=== PATIENT | male | born 1985 | race Caucasian/White ===

== ENCOUNTER 2018-12-07 08:48 | Emergency (ER) | payer MEDICAID, SELFPAY ==
[2018-12-07] VITALS (14 sets, daily range): BP systolic 128–130; BP diastolic 59–94; PULSE 50–84; RESP 11–21; TEMP 37.4; O2SAT 88–96
--- NOTE | 2018-12-07 08:55 | DI.RAD_ITS ---
SYMPTOMS/DIAGNOSIS: ? FX LT MID LOWER RIBS, INJURY LEFT RIBS TO INCLUDE CHEST X-RAY: The heart size and pulmonary vasculature are within normal limits. There is linear opacity seen in the left lung base medially likely reflecting atelectasis. There does appear to be a small left pleural effusion. No pneumothorax is identified. There are fractures involving the lateral aspect of the left ninth rib. IMPRESSION: 1. Comminuted fracture involving the lateral aspect of the left ninth rib. No pneumothorax. 2. Atelectasis in the left lung base.
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
[2018-12-07] MEDS: Ibuprofen 800 MG TAB PO (09:05)
[2018-12-07] MEDS: Acetaminophen 500 MG TAB 1000 MG PO (09:05)
[2018-12-07] MEDS: Lidocaine 5% Patch 1 PATCH TP (09:10)
[2018-12-07] MEDS: Ondansetron O.D.T. 4 MG TABEF (09:25)
--- NOTE | 2018-12-07 09:34 | DI.VRAD_ITS ---
Addendum created by Bhanu Cohen MD on 12/07/2018 9:36:20 AM EDT CORRECTION: Soft tissues: Superficial soft tissue contusion overlying the rib fractures. Initial report created on 12/07/2018 9:33:56 AM EDT EXAM: XR Left Ribs EXAM DATE/TIME: 12/07/2018 8:58 AM CLINICAL HISTORY: 33 years old, male; Signs and symptoms; Other: R/O FX of left mid-lower ribs TECHNIQUE: Imaging protocol: XR Left ribs. Views: 2 views. COMPARISON: No relevant prior studies available. FINDINGS: Bones/joints: There are fractures involving the left 9th rib. Lungs: There is a vertical band-like opacity in the posteromedial left lower lobe most compatible with atelectasis. Pleural space: No pneumothorax. Soft tissues: Normal. IMPRESSION: Left 9th rib fractures. No pneumothorax. EXAM: XR Chest, 2 Views EXAM DATE/TIME: 12/07/2018 8:58 AM CLINICAL HISTORY: 33 years old, male; Signs and symptoms; Other: R/O FX of left mid-lower ribs TECHNIQUE: Imaging protocol: XR of the chest, 2 views. COMPARISON: No relevant prior studies available. FINDINGS: Lungs: There is a vertical band-like opacity in the posteromedial left lower lobe most compatible with atelectasis. Pleural space: No pneumothorax. Trace posterior left pleural effusion. Heart/Mediastinum: The heart is not enlarged. The mediastinal contours are normal. Bones/joints: There are fractures involving the left 9th rib. IMPRESSION: Left 9th rib fractures. No pneumothorax. Dictated and Authenticated by: Bhanu Cohen MD. Ordering:NIURKA Garcia MD
[2018-12-07] MEDS: Bupivacaine LIPOSOME/PF 133 MG/10 ML VIAL IJ (10:00)
[2018-12-07] MEDS: Bupivacaine 0.5% Pres-Free 30 ML VIAL (10:00)
== END 2018-12-07 10:55 | disposition home or self-care (01) ==
PROVIDERS: Emergency Provider Student in an Organized Health Care Education/Training Program
DX: S22.32XA Fracture of one rib, left side, initial encounter for closed fracture (principal); W22.8XXA Striking against or struck by other objects, initial encounter
CPT/HCPCS: 99284; 71046; 71100

== ENCOUNTER 2019-10-19 10:14 | Emergency (ER) | payer MEDICAID, SELFPAY ==
[2019-10-19 10:17] VITALS: BP 158/94; PULSE 74; TEMP 36.7; O2SAT 96
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
[2019-10-19 11:01] LABS: Lactate 0.8 mmol/L (0.6-1.4)
--- NOTE | 2019-10-19 11:05 | DI.RAD_ITS ---
EXAM: XR HAND RT COMPLETE CLINICAL HISTORY: swelling/ TECHNIQUE: COMPARISON: No exams were available for comparison FINDINGS: Three views were obtained. No bony abnormality seen. IMPRESSION:
[2019-10-19 11:07] LABS: Abs Immature Grans 0.01 k/cumm (0.0-0.09); Absolute Basophil Count 0.01 k/cumm (0.0-0.2); Absolute Eosinophil Count 0.17 k/cumm (0.0-0.7); Absolute Lymphocyte Count 2.16 k/cumm (1.2-3.4); Absolute Monocyte Count 0.92 k/cumm (0.11-0.7); Absolute Neutrophil Count 5.45 k/cumm (1.2-6.7); Basophils % 0.1; Eosinophils % 1.9; HCT 39.1 % (40.0-50.0); HGB 13.3 g/dL (13.5-17.5); Immature Grans % 0.1 %; Lymphocytes % 24.8; Mean Corpuscular Hemoglobin 29.7 pg (27.0-33.0); Mean Corpuscular Volume 87.3 fL (80-95); Mean Platelet Volume 10.7 fL (8.0-11.0); Monocytes % 10.6; Neutrophils % 62.5; Platelet Count 222 x1000/uL (130-400); RBC 4.48 m/cumm (4.50-6.00); RBC Distribution Width 13.6 % (11.8-14.1); White Blood Cell Count 8.72 k/cumm (4.4-10.8)
[2019-10-19] MEDS: Normal Saline 1,000 ML 1000 ML IV (11:17)
[2019-10-19 11:24] LABS: ALT 210 U/L (16-63); AST 160 U/L (15-37); Albumin 3.9 g/dL (3.4-5.0); Alkaline Phosphatase 120 U/L (46-116); Anion Gap 9.2 mmol/L (3-11); BUN 12 mg/dL (7-18); Bilirubin, Total 0.4 mg/dL (0.2-1.0); C-Reactive Protein 7.74 mg/dL (0.0-0.3); CO2 26.8 mmol/L (21.0-32.0); CREATININE 0.68 mg/dL (0.70-1.30); Calcium 8.7 mg/dL (8.5-10.1); Chloride 106 mmol/L (98-107); Glucose 118 mg/dL (74-106); Potassium 3.9 mmol/L (3.5-5.1); Sodium 142 mmol/L (136-145); Total Protein 7.8 g/dL (6.4-8.2)
[2019-10-19] MEDS: Normal Saline Flush 10 ML SYR IVP (12:14)
[2019-10-19] MEDS: VANCOMYCIN 2,000 MG in Normal Saline 500 ML 250 MG IVPB (12:17)
[2019-10-19 12:28] VITALS: BP 129/76; PULSE 80; TEMP 37.2; O2SAT 99
[2019-10-19] MEDS: Sulfameth/Trimeth DS TAB 1 TAB PO (12:37)
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
== END 2019-10-19 13:05 | disposition home or self-care (01) ==
PROVIDERS: Emergency Provider Registered Nurse Emergency
DX: L02.511 Cutaneous abscess of right hand (principal); L03.113 Cellulitis of right upper limb
CPT/HCPCS: 10060; 36415; 80053; 87040; 96361; 96365; 96375; 99253; 99284; 73130; 83605; 85025; 86140; 87070; 87205; 99283

== ENCOUNTER 2021-12-31 11:55 | Emergency (ER) | payer MEDICAID, SELFPAY ==
[2021-12-31 12:02] VITALS: BP 145/87; PULSE 69; RESP 16; TEMP 37.1; O2SAT 98
[2021-12-31] MEDS: Bacitracin 1 PACKET TP (14:02)
[2021-12-31] MEDS: Doxycycline Hyclate 100 MG CAP PO (14:02)
--- NOTE | 2022-01-02 14:47 | ED.GENADUL_ITS ---
Discharge Plan Disposition Patient Disposition: HOME Condition: Stable Discharge Details Clinical Impression: Cellulitis of left thumb Primary Care Provider: None,None ED Provider: Savannah Manzo Home Meds and New Rx's Prescriptions: New doxycycline hyclate 100 mg capsule 100 mg PO BID Qty: 19 0RF Continued methadone 10 mg/mL Concentrate 80 mg PO DAILY Discharge Instructions Instructions: Cellulitis (ED) Additional Instructions: Please return immediately to the emergency department if you develop any new or worsening symptoms, if your condition does not improve as expected, or if you become otherwise concerned. It is extremely important that you call soon as possible to make an appointment to be seen in follow-up for this visit by your primary care doctor. Please return here in 48 for re-check if you cannot be seen by your primary doctor by that time. Discharge Data Discharge Date/Time-TO BE ENTERED AT DEPARTURE: 12/31/21 14:22 Medical Decision Making Duong Hernandez is a 36 y/o man with h/o OUD on methadone presenting to the [facility] department for thumb pain. Pt reports that 5 or six days ago he cut his right lateral thumb on metal. Pt reports that 3 days ago he developed swelling and redness on the dorsal aspect of his right thumb, adjacent to healing laceration. Swelling has worsened, now with pain. He reports small amount of purulent drainage from the dorsal right thumb. Denies fever, any other pain, SOB, cough, vomiting, diarrhea, numbness, weakness, other rash. He reports that he feels otherwise well and in his usual state of health. Reports normal PO intake. On exam Pt is well and non-toxic appearing. There is edema, erythema, TTP, and scant drainage over the extensor surface of the right thumb. Thumb is NVI. Exam/hx at this time is not c/w paronychia, felon, septic arthritis, flexor tenosynovitis, sepsis, necrotizing fasciitis, retained foreign body. POCUS shows subcutaneous edema, no fluid collection. Concern for cellultiis. No abscess present. Plan for tetanus update, doxycycline, finger splint. I had a discussion with Patient regarding return to emergency department precautions, home care, and importance of outpatient follow-up. Pt verbalizes understanding of the plan and is amenable. Patient discharged to home with clear plan for outpatient follow-up. All questions were answered. Disposition decision was made weighing the risks and benefits of hospitalization versus outpatient treatment, the risk for further decompensation, and the patient's wishes. HPI General Mode of arrival: ambulatory . Date/Time Provider Initiated Documentation: 12/31/21 12:35 . Limitations to Documentation: no limitations . Information obtained by: patient, RN notes reviewed and old records reviewed . HPI Narrative: Duong Hernandez is a 36 y/o man with h/o OUD on methadone presenting to the emergency department for thumb pain. Pt reports that 5 or six days ago he cut his right lateral thumb on metal. Pt reports that 3 days ago he developed swelling and redness on the dorsal aspect of his right thumb, adjacent to healing laceration. Swelling has worsened, now with pain. He reports small amount of purulent drainage from the dorsal right thumb. Denies fever, any other pain, SOB, cough, vomiting, diarrhea, numbness, weakness, other rash. He reports that he feels otherwise well and in his usual state of health. Reports normal PO intake. Related Data Home Medications Medication Instructions Recorded Confirmed doxycycline hyclate 100 mg capsule 100 mg PO BID #19 caps 12/31/21 methadone 10 mg/mL oral concentrate 80 mg PO DAILY 12/31/21 12/31/21 Previous Rx's Medication Instructions Recorded doxycycline hyclate 100 mg capsule 100 mg PO BID #19 caps 12/31/21 Allergies Allergy/AdvReac Type Severity Reaction Status Date / Time No Known Allergies Allergy Unverified 12/31/21 12:06 General Stated Complaint: Cellulitis DANIS: 3 Review of Systems Narrative: Constitutional: denies fevers Eyes: denies eye pain ENT: denies ear pain, dental pain, sore throat Cardiovascular: denies chest pain Respiratory: denies SOB, cough GI: denies abdominal pain, vomiting, diarrhea : denies flank pain MSK: reports right thumb pain over dorsal aspect, denies back pain, neck pain, arthralgias, myalgias Skin: reports right dorsal thumb swelling, redness, denies other rash Neuro: denies headaches, numbness, weakness PFSH All Active Problems Cellulitis of left thumb (Acute) Cellulitis and abscess of finger, unspecified (Acute) Social History Smoking/Tobacco Use Status: Current every day Tobacco Type: cigarettes Smoking risk assessment performed?: Yes Alcohol Intake: current Alcohol Intake frequency: a few times a week Alcohol type: beer, wine and hard liquor Drug use: Daily Substance use type: marijuana Do you feel safe at home: Yes Do you feel safe in your relationship?: Yes Exam Narrative Exam Narrative: Constitutional: well and [id number], pleasant, conversing normally HENT: head atraumatic/normocephalic/normal inspection, mucous membranes moist Eyes: conjunctiva normal, sclera normal, pupils 3mm b/l Neck: no stridor, normal ROM, trachea midline Resp: normal work of breathing, speaking in full sentences Cardio: normal rate, normal rhythm Skin: warm, dry, normal color, no rash Neuro: alert, not altered, grossly non-focal, normal tone Ext: right extensor surface of thumb with erythema, scant purulent drainage, edema. No TTP, edema, or erythema of the flexor surface. Erythema is present from proximal to the nail to just distal to the MCP joint. Able to range IP joint with some pain. Brisk cap refill. No other erythema or edema of the hand. Distal sensation of the thumb intact. Lateral right thumb laceration healing well without drainage, edema. Radial pulses intact and symmetric. Psych: normal mood, normal affect, normal behavior Course Vital Signs Vital signs: Vital Signs Temperature 37.1 C 12/31/21 12:02 Pulse 69 12/31/21 12:02 Respiratory Rate 16 12/31/21 12:02 Blood Pressure 145/87 H 12/31/21 12:02 Pulse Oximetry 98 12/31/21 12:02 Temperature 37.1 C 12/31/21 12:02 Temperature Source Skin 12/31/21 12:02 Pulse 69 12/31/21 12:02 Respiratory Rate 16 12/31/21 12:02 Respiratory Effort 12/31/21 13:21 Blood Pressure 145/87 H 12/31/21 12:02 Blood Pressure Position Sitting 12/31/21 12:02 Pulse Oximetry 98 12/31/21 12:02 Oxygen Delivery Method Room Air 12/31/21 12:02 Oxygen Flow Rate 0 12/31/21 12:02 Pain Level 10 12/31/21 12:02 PAWSS Have you Been Recently Intoxicated or Drunk Within the Last 30 days?: No Have you Ever Experienced Previous Episodes of Alcohol Withdrawal?: No Have you ever Experienced Withdrawal Seizures?: No Have you ever Experienced Delirium Tremens(DT)s?: No Have you ever undergone Alcohol Rehabilitation Treatment (i.e, inpt ot outpatient treatment programs)?: No Have you ever Experienced Blackouts?: No Have you ever Combined Alcohol with other Downers within the last 90 days?: No Have you ever Combined Alcohol with any other Substance of Abuse during the last 90 days?: No Positive Blood Alcohol level on Presentation? [PCS.BAL]: No Evidence of Increased Autonomic Activity (i.e. HR>120, tremor, sweating, agitation, nausea)?: No Result: 0
== END 2021-12-31 14:22 | disposition home or self-care (01) ==
PROVIDERS: Emergency Provider Student in an Organized Health Care Education/Training Program
DX: S61.012A Laceration without foreign body of left thumb without damage to nail, initial encounter (principal); L03.012 Cellulitis of left finger; W26.8XXA Contact with other sharp object(s), not elsewhere classified, initial encounter
CPT/HCPCS: 29130; 90471; 99283

== ENCOUNTER 2023-11-17 13:08 | Emergency (ER) | payer MEDICAID, SELFPAY ==
[2023-11-17 13:10] VITALS: BP 173/112; PULSE 80; RESP 16; TEMP 37.4; O2SAT 99
--- NOTE | 2023-11-17 14:00 | DI.CT_ITS ---
Exam(s) CT ABDOMEN PELVIS W EXAM: CT ABDOMEN PELVIS W CLINICAL HISTORY: concern for right inguinal hernia TECHNIQUE: Imaging Protocol: Axial computed tomography images with coronal and sagittal reformatted images were created and reviewed. CONTRAST MATERIAL: Intravenous: Omnipaque 350 Contrast volume:100 mL Oral: No COMPARISON: No exams were available for comparison FINDINGS: ABDOMEN: Lung Bases: Normal where visualized. Liver: The liver has a nodular contour raising the question of hepatic cirrhosis. Please correlate c linically. The liver measures 21 cm long. No measurable mass. Portal, Superior Mesenteric, and Splenic Veins: Unremarkable. Gallbladder and Biliary Tract: The gallbladder is contracted. No biliary ductal dilatation or stones are seen. Pancreas: Normal density, no abnormal calcifications or inflammatory process. Spleen: Splenomegaly. Adrenals: No masses seen. Kidneys: The patient has a horseshoe kidney. No radiodense stones or obstructive uropathy. No masses seen. Abdominal Aorta: Abdominal portion non-dilated. Bowel: No obstruction or bowel wall thickening. Appendix is unremarkable. Peritoneal Cavity: No ascites, collection or mesenteric inflammatory response. No free air. Lymph Nodes: Within normal limits. Bones: Within normal limits for the patient's age. Soft Tissues: There are small fat containing bilateral inguinal hernias. PELVIS: Bladder: The urinary bladder is incompletely distended. There is mild diffuse thickening of the wall of the urinary bladder. Reproductive Organs: Unremarkable as visualized. Lymph Nodes: Within normal limits. Bones: Within normal limits for the patient's age. IMPRESSION: 1. There do appear to be small bilateral fat containing inguinal hernias. 2. Hepatosplenomegaly. Nodular contour of the liver suggesting hepatic cirrhosis. 3. Incidental note is made of a horseshoe kidney. RADIATION DOSE DELIVERED: 1,327.94mGy.cm Total DLP DATA REPOSITORY: All CT scans at this facility are submitted to the National Radiology Data Registry (NRDR) Dose Index Registry (DIR) with the [employer] (ACR). RADIATION OPTIMIZATION: All CT scans at this facility use at least one of these dose optimization te chniques: automated exposure control; mA and/or kV adjustment per patient size (includes targeted exa ms where dose is matched to clinical indication); or iterative reconstruction.
[2023-11-17 14:09] VITALS: BP 173/112; PULSE 80; RESP 16; TEMP 37.4; O2SAT 99
[2023-11-17] MEDS: Normal Saline 1,000 ML 1000 ML IV (14:33)
[2023-11-17] MEDS: Ketorolac 15 MG/ML VIAL IVP (14:34)
[2023-11-17 14:53] LABS: Abs Immature Grans 0.02 10^3/uL (0.0-0.06); Absolute Basophil Count 0.02 10^3/uL (0.0-0.2); Absolute Eosinophil Count 0.08 10^3/uL (0.0-0.7); Absolute Lymphocyte Count 1.26 10^3/uL (1.2-3.4); Absolute Neutrophil Count 5.25 10^3/uL (1.2-6.7); Basophils % 0.3 %; Eosinophils % 1.1 %; HCT 38.6 % (40.0-50.0); HGB 12.5 g/dL (13.5-17.5); Immature Grans % 0.3 %; Lymphocytes % 17.2 %; MCH 28.2 pg (27.0-33.0); MCHC 32.4 % (32.0-36.0); MCV 87 fL (80-95); MPV 12.3 fL (8.0-11.0); Monocytes % 9.5 %; Neutrophils % 71.6 %; Platelet Count 169 10^3/uL (130-400); RBC 4.43 10^6/uL (4.36-5.78); RDW 13.2 % (11.8-14.1); RDW-SD 42.2 fL; WBC 7.33 10^3/uL (4.4-10.8)
[2023-11-17 15:09] LABS: ALT 88 U/L (16-63); AST 141 U/L (15-37); Albumin 3.4 g/dL (3.4-5.0); Alkaline Phosphatase 144 U/L (46-116); Anion Gap 6.5 mmol/L (3-11); BUN 10 mg/dL (7-18); Bilirubin, Total 0.7 mg/dL (0.2-1.0); CO2 28.5 mmol/L (21.0-32.0); CREATININE 0.7 mg/dL (0.70-1.30); Calcium 8.5 mg/dL (8.5-10.1); Chloride 105 mmol/L (98-107); Glucose 95 mg/dL (74-106); Potassium 4.5 mmol/L (3.5-5.1); Sodium 140 mmol/L (136-145); Total Protein 7.4 g/dL (6.4-8.2)
--- NOTE | 2023-11-17 15:10 | ED.GENADUL_ITS ---
Discharge Plan Disposition Patient Disposition: Home Condition: Improving Discharge Details Chief Complaint: Abd Prob Clinical Impression: Inguinal hernia Primary Care Provider: None,None ED Provider: Sandoval Arzola Home Meds and New Rx's Prescriptions: No Action No Known Home Meds Discharge Instructions Instructions: Inguinal Hernia (ED) Additional Instructions: Please follow-up with primary care physician and consider follow-up with general surgery for any worsening of your inguinal hernias. Please return to the emergency department for severe worsening symptoms such as but not limited to severe uncontrolled pain, skin color changes from painful hernias that do not resolve, nausea vomiting abdominal distention and/or constipation. HPI General Date/Time Provider Initiated Documentation: 11/17/23 13:52 . HPI Narrative: 38-year-old male presents with right groin pain after lifting at work. Denies bowel or bladder issues. No vomiting no abdominal distention no constipation. Related Data Home Medications Medication Instructions Recorded Confirmed Unknown [No Known Home Meds] 11/17/23 11/17/23 Allergies Allergy/AdvReac Type Severity Reaction Status Date / Time No Known Allergies Allergy Unverified 11/17/23 14:11 General Stated Complaint: Abd Prob DANIS: 3 Review of Systems Narrative: Review of Systems Constitutional: negative Eyes: negative ENT: negative Cardiovascular: negative Respiratory: negative Gastrointestinal: negative : Groin pain Musculoskeletal: negative Skin: negative Neurologic: negative Psych: negative Exam Narrative Exam Narrative: Physical Examination General: alert, awake, cooperative, resting comfortably, no acute distress HEENT: normocephalic, atraumatic; PERRL, EOM intact, conjunctiva normal; no nasal discharge; moist mucous membranes, oral and pharyngeal mucosa normal, tolerating secretions Neck: supple, trachea midline; full ROM Chest: normal to inspection Respiratory: normal respiratory effort, speaking in full sentences GI: abdomen soft, non-tender, non-distended; no palpable mass or hepatosplenomegaly : Normal external genitalia, slight fullness in inguinal region, normal testes Skin: no lesions, rashes or trauma appreciated Course Vital Signs Vital signs: Vital Signs Temperature 37.4 C 11/17/23 13:10 Pulse 80 11/17/23 13:10 Respiratory Rate 16 11/17/23 13:10 Blood Pressure 173/112 H 11/17/23 13:10 Pulse Oximetry 99 11/17/23 13:10 Temperature 37.4 C 11/17/23 14:09 Temperature Source Tympanic 11/17/23 14:09 Pulse 80 11/17/23 14:09 Respiratory Rate 16 11/17/23 14:09 Respiratory Effort Normal 11/17/23 14:09 Blood Pressure 173/112 H 11/17/23 14:09 Pulse Oximetry 99 11/17/23 14:09 Oxygen Delivery Method Room Air 11/17/23 14:09 Oxygen Flow Rate 0 11/17/23 13:10 Pain Level 6 11/17/23 14:09 Lab/Test Results Lab/Test Results: Laboratory Tests Range/Units 11/17/23 14:40 WBC (4.4-10.8) 10^3/uL 7.33 RBC (4.36-5.78) 10^6/uL 4.43 Hgb (13.5-17.5) g/dL 12.5 L Hct (40.0-50.0) % 38.6 L MCV (80-95) fL 87 MCH (27.0-33.0) pg 28.2 MCHC (32.0-36.0) % 32.4 RDW (11.8-14.1) % 13.2 Plt Count (130-400) 10^3/uL 169 MPV (8.0-11.0) fL 12.3 H Immature Gran % % 0.3 Neutrophils % % 71.6 Lymphocytes % % 17.2 Monocytes % % 9.5 Eosinophils % % 1.1 Basophils % % 0.3 Nucleated RBC % (0.0-0.3) % 0.0 Absolute Neutrophils (1.2-6.7) 10^3/uL 5.25 Absolute Lymphocytes (1.2-3.4) 10^3/uL 1.26 Absolute Monocytes (0.1-0.8) 10^3/uL 0.70 Absolute Eosinophils (0.0-0.7) 10^3/uL 0.08 Absolute Basophils (0.0-0.2) 10^3/uL 0.02 Medical Decision Making 38-year-old male presents with right groin pain in the setting of lifting at work. Slight fullness to inguinal region on examination, normal testes normal external genitalia, nonperitoneal nondistended abdomen. Likely inguinal hernia. No nausea vomiting abdominal distention or constipation no skin changes to suggest incarcerated or strangulated hernia. Will provide analgesia will obtain basic labs and CT abdomen pelvis to assess size and location of hernia. Likely be given general surgery follow-up 16: 18 bilateral inguinal hernias, no signs of incarceration or strangulation. Home care instructions return precautions given. Quality:SDOH Health Related Social Needs: No Data to Display PFSH All Active Problems (Updated 11/17/23 @ 16:20 by Sandoval Arzola MD) Inguinal hernia (Acute) Cellulitis and abscess of finger, unspecified (Acute) Social History Smoking/Tobacco Use Status: Current every day Tobacco Type: cigarettes Smoking risk assessment performed?: Yes Alcohol Intake: current Alcohol Intake frequency: a few times a week Alcohol type: beer, wine and hard liquor Drug use: Daily Substance use type: marijuana Do you feel safe at home: Yes Do you feel safe in your relationship?: Yes PAWSS Have you Been Recently Intoxicated or Drunk Within the Last 30 days?: No Have you Ever Experienced Previous Episodes of Alcohol Withdrawal?: No Have you ever Experienced Withdrawal Seizures?: No Have you ever Experienced Delirium Tremens(DT)s?: No Have you ever undergone Alcohol Rehabilitation Treatment (i.e, inpt ot outpatient treatment programs)?: No Have you ever Experienced Blackouts?: No Have you ever Combined Alcohol with other Downers within the last 90 days?: No Have you ever Combined Alcohol with any other Substance of Abuse during the last 90 days?: No Positive Blood Alcohol level on Presentation? [PCS.BAL]: No Evidence of Increased Autonomic Activity (i.e. HR>120, tremor, sweating, agitation, nausea)?: No Result: 0
[2023-11-17] MEDS: Omnipaque 350 MG/ML 100 ML BTL IJ (15:41)
[2023-11-17] MEDS: Normal Saline - Diluent 50 ML VIAL IJ (15:42)
[2023-11-17 16:26] VITALS: BP 173/112; PULSE 80; RESP 16; TEMP 37.4; O2SAT 99
[2023-11-17 16:29] VITALS: BP 146/92; PULSE 78; RESP 13; O2SAT 96
--- NOTE | 2023-11-17 17:46 | NUR.NOTE ---
Referral faxed to [facility] for bilateral inguinal hernias, in 1 to 2 weeks. Nursing Note:
== END 2023-11-17 16:30 | disposition home or self-care (01) ==
PROVIDERS: Emergency Provider Emergency Medicine
DX: K40.90 Unilateral inguinal hernia, without obstruction or gangrene, not specified as recurrent (principal); R10.31 Right lower quadrant pain
CPT/HCPCS: 80053; 96361; 96374; 99285; 74177; 85025; 99283; J1885; J3490

== ENCOUNTER 2024-03-08 15:32 | Emergency (ER) | payer MEDICAID, SELFPAY ==
--- NOTE | 2024-03-08 | DI.CT_ITS ---
Exam(s) CT LOWER EXTREMITY RT WO EXAM: CT LOWER EXTREMITY RT WO CLINICAL HISTORY: eval R knee intra-articular injury. TECHNIQUE: Imaging Protocol: Axial computed tomography images with coronal and sagittal reformatted images were created and reviewed. COMPARISON: CR XR TIB/FIB RT from 03/08/2024 CR XR FEMUR RT from 03/08/2024 FINDINGS: Bones: Comminuted fractures seen through the tibial spines extending mainly in the horizontal plane. Lateral tibial plateau fracture with minimal depression. Joints: Large hemarthrosis. Soft Tissues: Mild anterior soft tissue swelling IMPRESSION: Minimally depressed lateral tibial plateau fracture. Mildly displaced comminuted fractures through t he tibial spines. RADIATION DOSE DELIVERED: Total DLP Total DLP DATA REPOSITORY: All CT scans at this facility are submitted to the National Radiology Data Registry (NRDR) Dose Index Registry (DIR) with the [employer] (ACR). RADIATION OPTIMIZATION: All CT scans at this facility use at least one of these dose optimization te chniques: automated exposure control; mA and/or kV adjustment per patient size (includes targeted exa ms where dose is matched to clinical indication); or iterative reconstruction.
--- NOTE | 2024-03-08 15:30 | DI.CT_ITS ---
Exam(s) CT HEAD CERVICAL SPINE WO EXAM: CT HEAD CERVICAL SPINE WO CLINICAL HISTORY: Fall 12 ft. TECHNIQUE: Imaging Protocol: Axial computed tomography images with coronal and sagittal reformatted images were created and reviewed COMPARISON: No exams were available for comparison FINDINGS: Head CT Ventricles and Extra axial spaces: Normal in size and morphology for the patient's age. Hemorrhage: None. Cerebral parenchyma: No evidence of mass or acute infarct. Midline shift: None. Brainstem/Cerebellum: Normal. Calvarium: Normal. Visualized Paranasal sinuses/Mastoids: Clear. Soft tissues: Unremarkable. Cervical Spine CT BONES: Vertebral body heights are maintained. Alignment is normal. There is no evidence of acute frac ture. Degenerative disc changes and facet degenerative changes are seen at C6-7.. SOFT TISSUES: No paraspinal hematoma. The airway appears intact. No pneumothorax is seen at the lung apices. IMPRESSION: Head CT: No acute abnormality. C-spine CT: Mild degenerative changes, no acute abnormality. RADIATION DOSE DELIVERED: Total DLP DATA REPOSITORY: All CT scans at this facility are submitted to the National Radiology Data Registry (NRDR) Dose Index Registry (DIR) with the [employer] (ACR). RADIATION OPTIMIZATION: All CT scans at this facility use at least one of these dose optimization te chniques: automated exposure control; mA and/or kV adjustment per patient size (includes targeted exa ms where dose is matched to clinical indication); or iterative reconstruction.
[2024-03-08 15:31] VITALS: PULSE 84; RESP 15; TEMP 36.8; O2SAT 98
--- NOTE | 2024-03-08 15:46 | ED.GENADUL_ITS ---
Discharge Plan Disposition Patient Disposition: Home Condition: Stable Discharge Details Clinical Impression: Tibial plateau fracture, right, Fall from roof, Abnormal transaminases, Anemia Primary Care Provider: Unknown,Unknown ED Provider: Joan Dupree Home Meds and New Rx's Prescriptions: New oxycodone 5 mg capsule 5 mg PO Q8H PRNQty: 7 0RF Discharge Instructions Instructions: Lower Leg Fracture ED Additional Instructions: You were seen in the emergency department today for evaluation after falling off a ladder and were found of a fracture of your tibial plateau, the lower bone of your leg. You had a full medical evaluation and were placed in an immobilizer, which she should wear at all times and use crutches as needed to support your weight. You will follow-up with the orthopedics team in the next week for reevaluation and definitive management of this injury. Please use Tylenol and ibuprofen for management of your pain and thank you for allowing us to be part of your care. Referrals: Toño Kramer MD [ [facility] STAFF PHYSICIAN] - 1 week Discharge Data Discharge Date/Time-TO BE ENTERED AT DEPARTURE: 03/08/24 19:15 HPI General Mode of arrival: EMS . Date/Time Provider Initiated Documentation: 03/08/24 15:37 . Limitations to Documentation: no limitations . Information obtained by: patient and old records reviewed . HPI Narrative: MDM: In brief, this is a 39-year-old male patient without significant past medical history presenting for evaluation after a fall from a ladder. My differential includes but is not limited to fracture and dislocation, most concern for right lower extremity including femur, knee, tibia/fib, pelvis. I considered intracranial injury, cervical spine fracture, though the patient's remainder of his examination is reassuring against other severe injuries given his lack of pain and neurodeficits. He was in his normal state of health prior to this event and did not have dizziness or evidence of medical abnormalities to suggest arrhythmia, electrolyte derangements, kidney injury. The patient has no neurovascular deficits distal to his injury to suggest neurovascular injury. We will obtain CT of the head and C-spine, and x-ray imaging of the pelvis, right femur, and right tib-fib. The patient received medications prior to arrival for management of pain and nausea but we will certainly provide more as needed. ED Course: I reviewed the patient's laboratory studies, which are notable for a worsened anemia from baseline to 9.1 today, no evidence of active external bleeding on repeat physical examination. Mild thrombocytopenia at 127 is appreciated. Chemistry panel demonstrates no electrolyte derangements, kidney injury, patient does have a history of transaminitis which is redemonstrated today, bilirubin 1.1. I independently interpreted the patient's CT imaging and x-rays. He has no intracranial hemorrhage, skull fracture, or spine fracture, but does have evidence of a tibial plateau fracture, for which we obtain formal knee x-ray and CT of the knee. He will follow-up with Dr. Kramer in the outpatient environment for definitive management of this injury, I provided him with a knee immobilizer and crutches, as well as a short course of oxycodone for breakthrough pain management. At this time, the patient has had a full medical evaluation and is safe for discharge to home. They are hemodynamically stable, ambulatory, and tolerating PO. They are understanding of the follow-up plan and return precautions. They l eft our facility without incident. Joan Dupree MD HPI: This is a 39-year-old male patient without significant past medical history presenting for evaluation with EMS after a fall. Patient reports he was up on a roof ladder, was starting to distend but the hook slipped and he fell approximately 12 feet, landing on his right knee. He was not able to ambulate after this event due to pain but states that he did not strike his head, lose consciousness, and is not experiencing any other pain. EMS arrived and provided him with a c-collar given the mechanism of injury and his distracting injury, as well as 100 mcg of fentanyl 10 mL intranasally and oral Zofran to good effect. He was transferred to our facility without incident. Exam: Gen: awake and alert, in no apparent distress. Appears well nourished. HEENT: PERRL, EOMs full and without nystagmus. External ears and nose normal, mucous membranes moist. Neck: Supple, full range of motion, no tenderness or step-offs to palpation of the C-spine Lungs: No increased work of breathing, lung sounds clear and equal bilaterally without wheezes, rhonchi, or rales. CV: Heart with regular rate and rhythm, no murmurs auscultated. Strong and symmetrical radial pulses. Chest wall is without crepitus, tenderness, or deformity Abdomen: Soft, nondistended, non-tended to palpation. No rigidity, rebound tenderness, or guarding. MSK: The patient has swelling and tenderness of the right knee and proximal tib- fib, with some tenderness to palpation over the distal femur. He has no tenderness to the T/L spine and no step-offs. Pelvis is stable to AP compression. Otherwise, no joint swelling, no redness. Full ROM without limitation, no external traumatic findings. Skin: No rashes or lesions to visualized skin. Normal color, warm, and dry. Neuro: Cranial nerves II-XII intact and symmetrical bilaterally. 5/5 strength in all muscle groups x4 extremities with the exception of the right lower extremity, exam limited due to pain. No sensory deficits. Psych: Appropriate for situation. Related Data Home Medications ?Medication ?Instructions ?Recorded ?Confirmed oxycodone 5 mg capsule 5 mg PO Q8H PRN #7 caps 03/08/24 Previous Rx's ?Medication ?Instructions ?Recorded oxycodone 5 mg capsule 5 mg PO Q8H PRN #7 caps 03/08/24 Allergies Allergy/AdvReac Type Severity Reaction Status Date / Time No Known Allergies Allergy Unverified 11/17/23 14:11 General Stated Complaint: Fall/Non TraumaCriteria DANIS: 3 Course Vital Signs Vital signs: Vital Signs Temperature 36.8 C 03/08/24 15:31 Pulse 84 03/08/24 15:31 Respiratory Rate 15 03/08/24 15:31 Pulse Oximetry 98 03/08/24 15:31 Temperature 36.8 C 03/08/24 15:31 Temperature Source Tympanic 03/08/24 15:31 Pulse 84 03/08/24 15:31 Respiratory Rate 15 03/08/24 15:31 Respiratory Effort Normal 03/08/24 15:36 Blood Pressure Position Sitting 03/08/24 15:31 Pulse Oximetry 98 03/08/24 15:31 Oxygen Delivery Method Room Air 03/08/24 15:31 Oxygen Flow Rate 0 03/08/24 15:31 Pain Level 10 03/08/24 15:31 Medical Decision Making Quality:SDOH Health Related Social Needs: No Data to Display PFSH All Active Problems (Updated 03/08/24 @ 19:47 by Joan Dupree MD) Anemia (Chronic) Abnormal transaminases (Acute) Fall from roof (Acute) Tibial plateau fracture, right (Acute) Cellulitis and abscess of finger, unspecified (Acute) Social History Smoking/Tobacco Use Status: Current every day Tobacco Type: cigarettes Smoking risk assessment performed?: Yes Alcohol Intake: current Alcohol Intake frequency: a few times a week Alcohol type: beer, wine and hard liquor Drug use: Daily Substance use type: marijuana Do you feel safe at home: Yes Do you feel safe in your relationship?: Yes
--- NOTE | 2024-03-08 16:18 | DI.RAD_ITS ---
Exam(s) XR PELVIS AP XR TIB/FIB RT XR FEMUR RT EXAM: XR PELVIS AP CLINICAL HISTORY: Trauma. TECHNIQUE: 2D digital imaging was performed. Single AP view. COMPARISON: CR XR FEMUR RT from 03/08/2024 CR XR TIB/FIB RT from 03/08/2024 FINDINGS: Exam limited by overlying material. BONES: No fractures seen involving the pelvis or femur. There is a mildly displaced fracture at the tibial spines. No addition fractures are seen distally in the tibia and fibula.. No bony destructiv e lesion is seen. JOINTS: No dislocation present. Moderate narrowing of the right hip joint space. Large knee joint ef fusion. The ankle mortise is not widened. The ankle joint space is maintained. SOFT TISSUE: Chronic calcifications adjacent to the medial right femoral neck. IMPRESSION: Mildly displaced fracture at the tibial spines. No additional fractures elsewhere in the pelvis, fem ur or lower leg. DATA REPOSITORY: RADIATION DOSE DELIVERED:
--- NOTE | 2024-03-08 16:32 | DI.RAD_ITS ---
Exam(s) XR KNEE RT 4V AP,LAT,DEMETRI,PAT EXAM: XR KNEE RT 4V AP,LAT,DEMETRI,PAT CLINICAL HISTORY: Tibial plateau fx. TECHNIQUE: 2D digital imaging was performed. Three views. COMPARISON: No exams were available for comparison FINDINGS: Exam is limited by overlying material. BONES: Mildly fractures at the tibial spines again noted. Lucency through the lateral tibial plateau is present. No significant depression.. No bony destructive lesion is seen. JOINTS: The knee is normally aligned. A large joint effusion is seen. SOFT TISSUE: Mild anterior soft tissue swelling. IMPRESSION: For mildly displaced fracture at the tibial spines. Lateral tibial plateau fracture with no signific ant depression. DATA REPOSITORY: RADIATION DOSE DELIVERED:
[2024-03-08 17:27] LABS: Abs Immature Grans 0.02 10^3/uL (0.0-0.06); Absolute Basophil Count 0.02 10^3/uL (0.0-0.2); Absolute Eosinophil Count 0.05 10^3/uL (0.0-0.7); Absolute Lymphocyte Count 0.87 10^3/uL (1.2-3.4); Absolute Monocyte Count 0.39 10^3/uL (0.1-0.8); Absolute Neutrophil Count 4.28 10^3/uL (1.2-6.7); Basophils % 0.4 %; Eosinophils % 0.9 %; HCT 29.9 % (40.0-50.0); HGB 9.1 g/dL (13.5-17.5); Immature Grans % 0.4 %; Lymphocytes % 15.5 %; MCH 22.1 pg (27.0-33.0); MCHC 30.4 % (32.0-36.0); MCV 73 fL (80-95); Monocytes % 6.9 %; Neutrophils % 75.9 %; RBC 4.12 10^6/uL (4.36-5.78); RDW 17.3 % (11.8-14.1); WBC 5.63 10^3/uL (4.4-10.8)
[2024-03-08 17:36] LABS: INR 1.2 (0.9-1.1); Prothrombin Time 12.3 sec (9.1-11.1)
[2024-03-08 17:40] LABS: Platelet Count 127 10^3/uL (130-400)
[2024-03-08 17:41] LABS: ALT 86 U/L (16-63); AST 157 U/L (15-37); Albumin 3.7 g/dL (3.4-5.0); Alkaline Phosphatase 128 U/L (46-116); Anion Gap 6.9 mmol/L (3-11); BUN 8 mg/dL (7-18); Bilirubin, Total 1.17 mg/dL (0.2-1.0); CO2 26.1 mmol/L (21.0-32.0); CREATININE 0.9 mg/dL (0.70-1.30); Calcium 8.9 mg/dL (8.5-10.1); Chloride 105 mmol/L (98-107); Diff Comment RBC Morph Reviewed; Estimated GFR 110.73 (mL/min/1.73m2); Glucose 102 mg/dL (74-106); Hypochromasia 1+; Magnesium 2.1 mg/dL (1.8-2.4); Microcytosis 1+; Potassium 4.1 mmol/L (3.5-5.1); Sodium 138 mmol/L (136-145); Total Protein 7.9 g/dL (6.4-8.2)
[2024-03-08] MEDS: HYDROmorphone 2 MG/ML SYR 0.5 MG IVP (18:50)
[2024-03-08] MEDS: oxyCODONE 5 MG TAB PO (19:00)
--- NOTE | 2024-03-09 11:50 | ED.PROG_ITS ---
Date of service: 03/09/24 Time of Service: 11:50 Medical Decision Making This patient was seen yesterday in the emergency department following a fall from a roof for which he sustained a right tibial plateau fracture. His original provider did not yet have Medicaid insurance approval so I called in oxycodone tablets to the patient's pharmacy: oxycodone 5 mg tablets 5 mg PO Q8H PRNQty: 7 0RF He had no PDMP records. Quality:SDOH Health Related Social Needs: No Data to Display Discharge Plan Disposition Patient Disposition: Home Condition: Stable Discharge Details Clinical Impression: Tibial plateau fracture, right, Fall from roof, Abnormal transaminases, Anemia Primary Care Provider: Unknown,Unknown ED Provider: Joan Dupree Home Meds and New Rx's Prescriptions: New oxycodone 5 mg tablet 5 mg PO Q8H PRNQty: 7 0RF Discharge Instructions Instructions: Lower Leg Fracture ED Additional Instructions: You were seen in the emergency department today for evaluation after falling off a ladder and were found of a fracture of your tibial plateau, the lower bone of your leg. You had a full medical evaluation and were placed in an immobilizer, which she should wear at all times and use crutches as needed to support your weight. You will follow-up with the orthopedics team in the next week for reevaluation and definitive management of this injury. Please use Tylenol and ibuprofen for management of your pain and thank you for allowing us to be part of your care. Referrals: Toño Kramer MD [ [facility] STAFF PHYSICIAN] - 1 week Discharge Data Discharge Date/Time-TO BE ENTERED AT DEPARTURE: 03/08/24 19:15
--- NOTE | 2024-03-09 12:06 | NUR.NOTE ---
[facility]; [facility]; called stating that they do not have oxycodone capsules but do have tablets. Please change this. Also, Dr. Dupree does not yet have Medicaid and would need to have another physician resend the prescription. Dr. Llanos resent the prescription to [facility]. Nursing Note:
== END 2024-03-08 19:15 | disposition home or self-care (01) ==
PROVIDERS: Emergency Provider Emergency Medicine
DX: S82.111A Displaced fracture of right tibial spine, initial encounter for closed fracture (principal); S82.141A Displaced bicondylar fracture of right tibia, initial encounter for closed fracture; M25.461 Effusion, right knee; F17.210 Nicotine dependence, cigarettes, uncomplicated; W17.89XA Other fall from one level to another, initial encounter; Y93.89 Activity, other specified; R74.01 Elevation of levels of liver transaminase levels
CPT/HCPCS: 00123; 73552; 80053; 86850; 86900; 86901; 96374; 99285; 70450; 72125; 72170; 73564; 73590; 73700; 83735; 85025; 85610; 99284; J1170

== ENCOUNTER 2024-03-24 10:04 | Outpatient (CLI) | payer MEDICAID, SELFPAY ==
--- NOTE | 2024-03-24 15:45 | DI.MRI_ITS ---
Exam(s) MR LOWER JOINT RT WO EXAM: MR LOWER JOINT RT WO CLINICAL HISTORY: ? ligament injuries S82.141A FX RT TIBIA. TECHNIQUE: Multiplanar multisequence MRI was performed. COMPARISON: CR XR TIB/FIB RT from 03/08/2024 CR XR KNEE RT 4V AP,LAT,DEMETRI,PAT from 03/08/2024 FINDINGS: The examination is limited due to patient motion artifact. BONES: There is again seen a fracture of the lateral tibial plateau with minimal (1-2 mm) depression. There is marked marrow edema seen in the proximal tibia. There is a fracture through the medial ti bial spine. The fracture extends to involve the lateral aspect of the medial tibial plateau. There is mild lifting of the fracture fragment. There is mild marrow edema seen in the lateral femoral con dyle. No other fractures appreciated. JOINTS: There is a defect through the articular cartilage overlying the medial tibial plateau. There is a moderate hemarthrosis present. TENDONS: Extensor mechanism: There is thickening and intermediate signal seen in the extensor mechanism at its anterior tibial attachment site. No yanira tear is identified. Medial retinaculum: Unremarkable. Lateral retinaculum: Unremarkable. Popliteus: Unremarkable. MUSCLES: Unremarkable. MENISCI: The medial meniscus is unremarkable. The lateral meniscus is unremarkable. SOFT TISSUES: There is edema seen in the soft tissues around the knee. No focal fluid collection is appreciated. LIGAMENTS: Anterior Cruciate: The anterior cruciate ligament is intact and attached to the tibial spine fragment . There is no evidence of a full-thickness anterior cruciate ligament tear. There is mild increased signal seen within the tendon which may represent a sprain. Posterior Cruciate: Unremarkable. Medial Collateral:The MCL is intact. There is some fluid around the ligament which may represent a s prain. Lateral Collateral: Unremarkable. OTHER: IMPRESSION: 1. Lateral tibial plateau fracture without significant depression. 2. Mildly displaced fracture involving the medial tibial spine with with extension into the lateral a spect of the medial tibial plateau. 3. The anterior cruciate ligament is intact without evidence of a complete tear. There may be a spra in present. 4. Moderately large hemarthrosis. 5. Thickening in and intermediate signal seen in the extensor mechanism at its anterior tibial attach ment without evidence of a full-thickness tear. 6. No evidence of a meniscal tear. 7. Please see the above discussion for complete details. DATA REPOSITORY:
== END 2024-03-24 10:24 ==
LOC: DI 10:04
PROVIDERS: Visit Provider Student in an Organized Health Care Education/Training Program
DX: S82.141A Displaced bicondylar fracture of right tibia, initial encounter for closed fracture (principal); X58.XXXA Exposure to other specified factors, initial encounter
CPT/HCPCS: 73721

== ENCOUNTER 2024-03-30 10:23 | Outpatient (CLI) | payer MEDICAID, SELFPAY ==
--- NOTE | 2024-03-30 10:00 | DI.RAD_ITS ---
Exam(s) XR KNEE RT 2V AP,LAT EXAM: XR KNEE RT 2V AP,LAT CLINICAL HISTORY: F/U FRACTURE. TECHNIQUE: 2D digital imaging was performed. Three views. COMPARISON: CR XR KNEE RT 4V AP,LAT,DEMETRI,PAT from 03/08/2024 MR MR LOWER JOINT RT WO from 03/24/2024 FINDINGS: BONES: Stable alignment lateral tibial plateau fracture and fracture at the base of the tibial spines . No bony destructive lesion is seen. JOINTS: The knee is normally aligned. A large joint effusion is seen. SOFT TISSUE: Normal. IMPRESSION: Stable fracture alignment. Large effusion remains present. DATA REPOSITORY: RADIATION DOSE DELIVERED:
== END 2024-03-30 10:24 | disposition home or self-care (01) ==
LOC: DIORS 10:23
PROVIDERS: Visit Provider Student in an Organized Health Care Education/Training Program
DX: S82.141D Displaced bicondylar fracture of right tibia, subsequent encounter for closed fracture with routine healing (principal); X58.XXXD Exposure to other specified factors, subsequent encounter
CPT/HCPCS: 73560

== ENCOUNTER 2024-05-25 15:13 | Outpatient (CLI) | payer MEDICAID, SELFPAY ==
--- NOTE | 2024-05-25 10:00 | DI.RAD_ITS ---
Exam(s) XR KNEE RT 2V AP,LAT EXAM: XR KNEE RT 2V AP,LAT CLINICAL HISTORY: F/U FRACTURE. TECHNIQUE: 2D digital imaging was performed. Three views. COMPARISON: CR XR KNEE RT 2V AP,LAT from 03/30/2024 FINDINGS: BONES: No change in alignment of the fracture of the tibial spines and lateral tibial plateau. Sherrill nued healing. Bones appear mildly demineralized, likely from disuse. No bony destructive lesion is seen. JOINTS: The knee is normally aligned. Decreased joint effusion. SOFT TISSUE: Normal. IMPRESSION: Stable fracture alignment. DATA REPOSITORY: RADIATION DOSE DELIVERED:
== END 2024-05-25 15:14 | disposition home or self-care (01) ==
LOC: DIORS 15:13
PROVIDERS: Visit Provider Student in an Organized Health Care Education/Training Program
DX: S82.141D Displaced bicondylar fracture of right tibia, subsequent encounter for closed fracture with routine healing (principal); X58.XXXD Exposure to other specified factors, subsequent encounter
CPT/HCPCS: 73560

== ENCOUNTER 2025-05-19 09:34 | Emergency (ER) | payer MEDICAID, SELFPAY ==
[2025-05-19 09:41] VITALS: BP 197/176; PULSE 79; RESP 17; TEMP 36.9; O2SAT 98
[2025-05-19 09:43] VITALS: BP 197/176; PULSE 79; RESP 17; TEMP 36.9; O2SAT 98
[2025-05-19 10:18] VITALS: BP 149/90
--- NOTE | 2025-05-19 12:52 | W.ED.GENAD ---
Discharge Plan Disposition Patient Disposition: Home Condition: Stable Discharge Details Clinical Impression: Sinusitis Primary Care Provider: None,None ED Provider: Brooklynn Shay Home Meds and New Rx's Prescriptions: New amoxicillin 875 mg tablet 875 mg PO BID Qty: 10 0RF Continued methadone 5 mg/5 mL solution 100 mg PO DAILY Discharge Instructions Instructions: Sinusitis in adults Additional Instructions: Take the antibiotic as prescribed Increase fluids, make sure you are drinking eight 8 ounce glasses of water daily, Mucinex daily Afrin nasal spray for 3 days Please return should you have worsening shortness of breath, fever, chills, or should any new concerns arise Stand Alone Forms: Portal Information HPI General Date/Time Provider Initiated Documentation: 05/19/25 09:51. 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 Patient presents secondary to worsening congestion and pain in the facial region. Patient denies any chest pain or shortness of breath. He denies fever at home. He is concerned regarding the longevity of his symptoms. Has had mild headaches. Related Data Home Medications Medication Instructions Recorded Confirmed amoxicillin 875 mg tablet 875 mg PO BID #10 tabs 05/19/25 methadone 5 mg/5 mL oral solution 100 mg PO DAILY 05/19/25 05/19/25 Previous Rx's Medication Instructions Recorded amoxicillin 875 mg tablet 875 mg PO BID #10 tabs 05/19/25 Allergies Allergy/AdvReac Type Severity Reaction Status Date / Time No Known Allergies Allergy Unverified 05/19/25 09:43 General Stated Complaint: RespSymp DANIS: 3 Exam Narrative Exam Narrative: Alert oriented no acute distress tenderness with palpation in the maxillary sinus region lungs clear to auscultation, TMs clear bilaterally cardiac rate rhythm regular Course Vital Signs Vital signs: Vital Signs Temperature 36.9 C 05/19/25 09:41 Pulse 79 05/19/25 09:41 Respiratory Rate 17 05/19/25 09:41 Blood Pressure 197/176 H 05/19/25 09:41 Pulse Oximetry 98 05/19/25 09:41 Temperature 36.9 C 05/19/25 09:43 Temperature Source Oral 05/19/25 09:43 Pulse 79 05/19/25 09:43 Respiratory Rate 17 05/19/25 09:43 Respiratory Effort Normal 05/19/25 09:47 Respiratory Depth Normal 05/19/25 09:47 Blood Pressure 149/90 H 05/19/25 10:18 Blood Pressure Mean 109 05/19/25 10:18 Blood Pressure Position Sitting 05/19/25 09:43 Pulse Oximetry 98 05/19/25 09:43 Oxygen Delivery Method Room Air 05/19/25 09:43 Oxygen Flow Rate 0 05/19/25 09:43 Pain Level 6 05/19/25 09:43 Medical Decision Making Patient is alert and oriented, no acute distress, amoxicillin will be prescribed for possible sinusitis. Return precautions reviewed and patient expressed understanding discharged home in stable condition with stable vitals will need blood pressure rechecked. PFSH All Active Problems (Updated 05/19/25 @ 10:16 by HONG Terrell) Sinusitis (Acute) Stiffness of right knee (Acute) No-show for appointment (Acute) Right ACL tear (Acute 03/08/24) Tibial plateau fracture, right (Acute) Cellulitis and abscess of finger, unspecified (Acute) Social History Smoking/Tobacco Use Status: Current every day Tobacco Type: e-cigarettes Smoking risk assessment performed?: Yes Alcohol Intake: current Alcohol Intake frequency: a few times a week Alcohol type: beer, wine and hard liquor Drug use: Daily Substance use type: former substance user Do you feel safe at home: Yes Do you feel safe in your relationship?: Yes
== END 2025-05-19 10:28 | disposition home or self-care (01) ==
PROVIDERS: Emergency Provider Physician Assistant
DX: J01.90 Acute sinusitis, unspecified (principal)
CPT/HCPCS: 99283 ×2